=== PATIENT | male | born 1970 | race Caucasian/White ===

== ENCOUNTER → 2024-02-08 | Outpatient (CLI) | payer BC ==
[2024-02-08 15:31] VITALS: BP 159/83; PULSE 67; RESP 16; TEMP 98.3
--- NOTE | 2024-02-08 15:53 | P.SLEEP ---
History of Present Illness DATE: 02/08/2024 CONSULTATION/NEW PATIENT EVALUATION HISTORY OF PRESENT ILLNESS/SLEEP-WAKE EVALUATION: 53-year-old gentleman had be en evaluated in the sleep center for possible obstructive sleep apnea hypopnea syndrome. SLEEP SCHEDULE: Usually sleep schedule from 11 PM to 6 AM on weekdays and from 11 PM to 7 AM on weekend. FALLING ASLEEP: Patient does have difficulties with falling asleep, although no TV in bedroom. DURING SLEEP: Patient sleeps on the side position with loud snoring, witnessed episodes of stop breathing during the sleep by his , awakenings with episodes of palpitations. Patient wakes up from sleep up to 4 times with 2 episodes of nocturia. No history of hypnogogical hallucinations, sleep paralysi s, or cataplexy. DURING THE DAY/WAKE STATE: Patient has episodes of anxiety and claustrophobia during the day.. [place] sleepiness scale is 4. Usually patient does not take naps. PAST MEDICAL HISTORY: Episode of atrial fibrillation, hypertension, hyperlipidemia, anxiety. PAST SURGICAL HISTORY: Tonsillectomy. MEDICATIONS: Please see below. SOCIAL HISTORY: Please see below. FAMILY HISTORY: Hypertension, heart problems. REVIEW OF SYSTEMS: Snoring, multiple awakenings from sleep. No fevers. No double vision. No recent chest pain. No shortness of breath. No abdominal pain. No bleeding episodes. No blood in urine. No seizure episodes. PHYSICAL EXAMINATION: GENERAL: A pleasant patient without any distress. VITAL SIGNS: Please see below, weight 214 pounds, BMI 28.2. HEENT: PERRLA, EOMI. Evaluation of oropharynx showed tongue protrudes midline, low position of soft palate Mallampati 4. NECK: Supple. No JVD. Thyroid is not palpable. 17-1/4 inches in circumference. LUNGS: Clear to percussion and to auscultation. Good air exchange. No wheezing or rhonchi. HEART: S1, S2 regular. No murmurs, gallops or rubs. ABDOMEN: Soft and nontender. Bowel sounds are present. No organomegaly appreciated. EXTREMITIES: No clubbing or cyanosis. BOARD WRITER: Awake, alert, and oriented x3. Cranial nerves 2 to 7 intact. There is no fasciculation or atrophy noted. No focal deficits observed. ASSESSMENT: 1. Loud snoring, witnessed episodes of stop breathing during the sleep, extremely low position of soft palate Mallampati 4, wide neck 17-1/4 inches in circumference. Obstructive sleep apnea hypopnea syndrome. 2. History of episode of atrial fibrillation. 3. Hypertension. 4. Hyperlipidemia. 5 history of anxiety. 6 . Status post tonsillectomy. 7. Insomnia with difficulties to initiate sleep, psychophysiological and possibly secondary to anxiety. PLAN: 1. Polysomnography for evaluation of patient's breathing during sleep. 2. Following plan after reading sleep study. 3. Preferable position during sleep on the side. 4. No driving if patient feels any sleepiness. Patient is aware of civil and criminal liability for unsafe driving. 5. Sleep hygiene with regular sleep time for at least 7.5-8 hours. 6. Watching weight. Thank you very much for referring this patient for consultation. Sincerely, Rui Cabrera MD, PhD, FAASM. Diplomat of [place] [employer], Sleep Medicine Board by [place] [employer] [place] [employer] Intensive Care Nurse of [facility] [place] cc: Rj Hudson MD, Jose Ruiz MD Past Medical History Past Medical History: Atrial Fibrillation History of Any Multi-Drug Resistant Organisms: None Reported Past Surgical History: Tonsillectomy Past Anesthesia/Blood Transfusion Reactions: No Reported Reaction Past Psychological History: No Psychological Hx Reported Smoking Status: Light tobacco smoker Past Alcohol Use History: None Reported Past Drug Use History: None Reported Medications and Allergies Home Medications Medication Instructions Recorded Confirmed Type ALPRAZolam [Xanax] 0.5 mg PO DAILY PRN 02/08/24 02/08/24 History Aspirin [Adult Low Dose Aspirin EC] 81 mg PO DAILY 02/08/24 02/08/24 History Atorvastatin [Lipitor] 20 mg PO DAILY 02/08/24 02/08/24 History PARoxetine [Paxil] 20 mg PO DAILY 02/08/24 02/08/24 History lisinopriL [Zestril] 2.5 mg PO DAILY 02/08/24 02/08/24 History Physical Exam Vitals: Vital Signs Temp Pulse Resp BP Pulse Ox 02/08/24 15:31 98.3 F 67 16 159/83 100 Intake and Output 02/08/24 02/08/24 02/08/24 06:59 14:59 22:59 Other: Weight 97.069 kg Sleep Note - Sleep Data ESS Total: 4 - Sleep Note Sleep Note: Temperature: 98.3 F Pulse Rate: 67 Respiratory Rate: 16 Blood Pressure: 159/83 SpO2: 100 Height: 6 ft 1 in Weight: 97.069 kg BMI: Neck Circumference: 17.2
== END ==
LOC: 3 N SLEEP 15:05
PROVIDERS: ATTEND Internal Medicine
DX: G47.33 Obstructive sleep apnea (adult) (pediatric) (principal); I10 Essential (primary) hypertension; E78.5 Hyperlipidemia, unspecified; F51.04 Psychophysiologic insomnia; F17.200 Nicotine dependence, unspecified, uncomplicated; Z98.890 Other specified postprocedural states; Z90.89 Acquired absence of other organs; Z86.79 Personal history of other diseases of the circulatory system; Z79.899 Other long term (current) drug therapy
CPT/HCPCS: 99211

== ENCOUNTER 2024-03-11 19:23 | Observation (INO) | payer BC ==
--- NOTE | 2024-03-11 19:45 | ED ---
General Adult HPI - General Chief complaint: Syncope Stated complaint: Syncope Time Seen by Provider: 03/11/24 19:40 Source: patient, family, EMS, RN notes reviewed Mode of arrival: EMS - History of Present Illness Initial comments: 53-year-old male with a past medical history of hypertension, cholesterol, and anxiety, presents emergency department via EMS for chief complaint of syncopal event. Patient was at his stepdaughter's house this afternoon when he went into the kitchen and had a syncopal event where he hit his head. at bedside states that the patient was nonresponsive for a few minutes and was seen 'foaming at the mouth' and hands contracted by his chest, and after the patient was arousable he was confused and answering questions inappropriately prompting his to call EMS. Currently, patient is denying symptoms of headache, shortness of breath, difficulty breathing, chest pain, chest pressure, heart palpitations, abdominal pain. Patient states that he is feeling mildly nauseous. Patient has a history of syncopal events over the past few years and had a full neurological workup with EEG and no acute findings. denies history of seizures. - Related Data Home Medications Medication Instructions Recorded Confirmed ALPRAZolam [Xanax] 0.5 mg PO DAILY PRN 02/08/24 02/08/24 Aspirin [Adult Low Dose Aspirin EC] 81 mg PO DAILY 02/08/24 02/08/24 Atorvastatin [Lipitor] 20 mg PO DAILY 02/08/24 02/08/24 PARoxetine [Paxil] 20 mg PO DAILY 02/08/24 02/08/24 lisinopriL [Zestril] 2.5 mg PO DAILY 02/08/24 02/08/24 Allergies Allergy/AdvReac Type Severity Reaction Status Date / Time No Known Allergies Allergy Verified 03/11/24 19:30 Review of Systems ROS Statement: Those systems with pertinent positive or pertinent negative responses have been documented in the HPI. ROS Other: All systems not noted in ROS Statement are negative. Past Medical History Past Medical History: Atrial Fibrillation History of Any Multi-Drug Resistant Organisms: None Reported Past Surgical History: Tonsillectomy Past Anesthesia/Blood Transfusion Reactions: No Reported Reaction Past Psychological History: No Psychological Hx Reported Smoking Status: Light tobacco smoker Past Alcohol Use History: None Reported Past Drug Use History: None Reported General Exam General appearance: alert, in no apparent distress Head exam: Present: atraumatic, normocephalic, normal inspection Eye exam: Present: normal appearance, PERRL, EOMI. Absent: scleral icterus, conjunctival injection, periorbital swelling ENT exam: Present: normal exam, mucous membranes moist Neck exam: Present: normal inspection. Absent: tenderness, meningismus, lymphadenopathy Respiratory exam: Present: normal lung sounds bilaterally. Absent: respiratory distress, wheezes, rales, rhonchi, stridor Cardiovascular Exam: Present: regular rate, normal rhythm, normal heart sounds. Absent: systolic murmur, diastolic murmur, rubs, gallop, clicks GI/Abdominal exam: Present: soft, normal bowel sounds. Absent: distended, tend erness, guarding, rebound, rigid Extremities exam: Present: normal inspection, full ROM, normal capillary refill. Absent: tenderness, pedal edema, joint swelling, calf tenderness Back exam: Present: normal inspection Neurological exam: Present: alert, oriented X3, CN II-XII intact Skin exam: Present: warm, dry, intact, normal color. Absent: rash Course Vital Signs 03/11/24 03/11/24 03/11/24 19:28 20:50 21:42 Temperature 97.8 F Pulse Rate 71 73 75 Respiratory 18 18 18 Rate Blood Pressure 162/86 157/79 141/75 O2 Sat by Pulse 100 100 99 Oximetry Medical Decision Making - Medical Decision Making Was pt. sent in by a medical professional or institution ([facility]INA Smith, [employer], urgent care, hospital, or [place] health care facility...) When possible be specific @ -No Did you speak to anyone other than the patient for history (EMS, parent, family, police, friend...)? What history was obtained from this source @ -Spoke to the patient's at bedside states the patient was "unresponsive "for approximately 6 to 8 minutes after the syncopal event, see HPI for further details. Did you review nursing and triage notes (agree or disagree)? Why? @ -I reviewed and agree with nursing and triage notes Were old charts reviewed (outside hosp., previous admission, EMS record, old EKG, old radiological studies, urgent care reports/EKG's, [place] health care facility records)? Report findings @ -No old charts were reviewed Differential Diagnosis (chest pain, altered mental status, abdominal pain women, abdominal pain men, vaginal bleeding, weakness, fever, dyspnea, syncope, headache, dizziness, GI bleed, back pain, seizure, CVA, palpatations, mental health, musculoskeletal)? @ -Differential Syncope: Valvular disease, hypertrophic cardiomyopathy, pulmonary embolism, tamponade, tachycardia, bradycardia, [place], hypovolemia, hemorrhage, dissection, anemia, intracranial hemorrhage, seizure, hypoglycemia, carbon monoxide poisoning, this is not meant to be an all-inclusive list. EKG interpreted by me (3pts min.). @ -completed at 1955, sinus rhythm, ventricular rate 69, parable 146, QTc 420. No acute signs of ischemia. X-rays interpreted by me (1pt min.). @ -chest X-ray no acute cardiopulmonary process or disease. CT interpreted by me (1pt min.). @ -CT of the brain without contrast reveals no acute intracranial process CT of the chest suboptimal study without evidence for acute pulmonary embolism, no suspicious acute pulmonary process. U/S interpreted by me (1pt. min.). @ -None done What testing was considered but not performed or refused? (CT, X-rays, U/S, labs)? Why? @ -None What meds were considered but not given or refused? Why? @ -None Did you discuss the management of the patient with other professionals (professionals i.e. , PA, CARPENTER ASSEMBLER, lab, RT, psych nurse, web content & social media manager, housekeeper child care, teacher, plain clothes police officer, high risk case manager)? Give summary @ -I spoke with internal medicine physician, Dr. Perez, with [facility] hospitalists in regard to the patient's presentation and admission for syncope workup and cardiology and neurology on consult, patient is excepted. Was smoking cessation discussed for >3mins.? @ -No Was critical care preformed (if so, how long)? @ -No Were there social determinants of health that impacted care today? How? (Homelessness, low income, unemployed, alcoholism, drug addiction, transportation, low edu. Level, literacy, decrease access to med. care, prison, rehab)? @ -No Was there de-escalation of care discussed even if they declined (Discuss DNR or withdrawal of care, Hospice)? DNR status @ -No What co-morbidities impacted this encounter? (DM, HTN, Smoking, COPD, CAD, Cancer, CVA, ARF, Chemo, Hep., AIDS, mental health diagnosis, sleep apnea, morbid obesity)? @ -None Was patient admitted / discharged? Hospital course, mention meds given and route, prescriptions, significant lab abnormalities, going to OR and other pertinent info. @ -admitted. 53-year-old male with syncopal event. On my evaluation patient is resting comfortably in no acute distress, vitals are stable and EKG showing si nus rhythm. Examination there are no acute findings. Patient is saying that he feels mildly nauseated. CBC, CMP within normal limits, troponin nonelevated less than 0.012. CT of the brain and chest x-ray no acute process. Coagulation profile reason mildly elevated DM biomarker level of 0.73, with there being no definitive diagnosis as to why patient had a syncopal event this evening in addition to mildly elevated D-dimer he is sent for a CTA of the chest to rule out potential pulmonary embolism that is a negative study. Patient will be admitted to internal medicine with neurology and cardiology on consult for syncopal event and to rule out potential seizure. Case discussed with Dr. Ramy hyatt Undiagnosed new problem with uncertain prognosis? @ -No Drug Therapy requiring intensive monitoring for toxicity (Heparin, Nitro, Insulin, Cardizem)? @ -No Were any procedures done? @ -No Diagnosis/symptom? @ -syncope Acute, or Chronic, or Acute on Chronic? @ -acute Uncomplicated (without systemic symptoms) or Complicated (systemic symptoms)? @ -complicated Side effects of treatment? @ -No Exacerbation, Progression, or Severe Exacerbation? @ -No Poses a threat to life or bodily function? How? (Chest pain, [place], [place], pneumonia, PE, COPD, DKA, ARF, appy, cholecystitis, CVA, Diverticulitis, Homicidal, Suicidal, threat to staff... and all critical care pts) @ -Cause of syncope can lead to multiorgan system dysfunction and potential . - Lab Data Result diagrams: 03/11/24 19:49 03/11/24 19:49 Lab Results 03/11/24 03/11/24 03/11/24 Range/Units 19:49 19:49 19:49 WBC 8.9 (3.8-10.6) k/uL RBC 4.66 (4.30-5.90) m/uL Hgb 14.2 (13.0-17.5) gm/dL Hct 42.5 (39.0-53.0) % MCV 91.3 (80.0-100.0) fL MCH 30.6 (25.0-35.0) pg MCHC 33.5 (31.0-37.0) g/dL RDW 13.2 (11.5-15.5) % Plt Count 171 (150-450) k/uL MPV 10.0 Neutrophils % 79 % Lymphocytes % 13 % Monocytes % 5 % Eosinophils % 2 % Basophils % 0 % Neutrophils # 7.0 (1.3-7.7) k/uL Lymphocytes # 1.1 (1.0-4.8) k/uL Monocytes # 0.4 (0-1.0) k/uL Eosinophils # 0.2 (0-0.7) k/uL Basophils # 0.0 (0-0.2) k/uL PT 11.7 (10.0-12.5) sec INR 1.1 (<1.2) APTT 23.3 (22.0-30.0) sec D-Dimer 0.73 H (<0.60) mg/L FEU Sodium 135 L (137-145) mmol/L Potassium 3.3 L (3.5-5.1) mmol/L Chloride 102 (98-107) mmol/L Carbon Dioxide 23 (22-30) mmol/L Anion Gap 10 mmol/L BUN 14 (9-20) mg/dL Creatinine 0.81 (0.66-1.25) mg/dL Est GFR (CKD-EPI)AfAm >90 (>60 ml/min/1.73 sqM) Est GFR (CKD-EPI)NonAf >90 (>60 ml/min/1.73 sqM) Glucose 120 H (74-99) mg/dL POC Glucose (mg/dL) (70-110) mg/dL POC Glu Personnel And Payroll Technician ID Calcium 8.7 (8.4-10.2) mg/dL Magnesium 1.7 (1.6-2.3) mg/dL Total Bilirubin 1.2 (0.2-1.3) mg/dL AST 26 (17-59) U/L ALT 33 (4-49) U/L Alkaline Phosphatase 90 (38-126) U/L Troponin I (0.000-0.034) ng/mL Total Protein 6.7 (6.3-8.2) g/dL Albumin 4.1 (3.5-5.0) g/dL Urine Color Urine Appearance (Clear) Urine pH (5.0-8.0) Ur Specific [place] (1.001-1.035) Urine Protein (Negative) Urine Glucose (UA) (Negative) Urine Ketones (Negative) Urine Blood (Negative) Urine Nitrite (Negative) Urine Bilirubin (Negative) Urine Urobilinogen (<2.0) mg/dL Ur Leukocyte Esterase (Negative) 03/11/24 03/11/24 03/11/24 Range/Units 19:49 20:03 20:06 WBC (3.8-10.6) k/uL RBC (4.30-5.90) m/uL Hgb (13.0-17.5) gm/dL Hct (39.0-53.0) % MCV (80.0-100.0) fL MCH (25.0-35.0) pg MCHC (31.0-37.0) g/dL RDW (11.5-15.5) % Plt Count (150-450) k/uL MPV Neutrophils % % Lymphocytes % % Monocytes % % Eosinophils % % Basophils % % Neutrophils # (1.3-7.7) k/uL Lymphocytes # (1.0-4.8) k/uL Monocytes # (0-1.0) k/uL Eosinophils # (0-0.7) k/uL Basophils # (0-0.2) k/uL PT (10.0-12.5) sec INR (<1.2) APTT (22.0-30.0) sec D-Dimer (<0.60) mg/L FEU Sodium (137-145) mmol/L Potassium (3.5-5.1) mmol/L Chloride (98-107) mmol/L Carbon Dioxide (22-30) mmol/L Anion Gap mmol/L BUN (9-20) mg/dL Creatinine (0.66-1.25) mg/dL Est GFR (CKD-EPI)AfAm (>60 ml/min/1.73 sqM) Est GFR (CKD-EPI)NonAf (>60 ml/min/1.73 sqM) Glucose (74-99) mg/dL POC Glucose (mg/dL) 106 (70-110) mg/dL POC Glu Personnel And Payroll Technician ID Lynda Mayen Calcium (8.4-10.2) mg/dL Magnesium (1.6-2.3) mg/dL Total Bilirubin (0.2-1.3) mg/dL AST (17-59) U/L ALT (4-49) U/L Alkaline Phosphatase (38-126) U/L Troponin I <0.012 (0.000-0.034) ng/mL Total Protein (6.3-8.2) g/dL Albumin (3.5-5.0) g/dL Urine Color Light Yellow Urine Appearance Clear (Clear) Urine pH 6.5 (5.0-8.0) Ur Specific [place] 1.019 (1.001-1.035) Urine Protein Negative (Negative) Urine Glucose (UA) Negative (Negative) Urine Ketones 1+ H (Negative) Urine Blood Negative (Negative) Urine Nitrite Negative (Negative) Urine Bilirubin Negative (Negative) Urine Urobilinogen <2.0 (<2.0) mg/dL Ur Leukocyte Esterase Negative (Negative) Disposition Clinical Impression: Syncope Disposition: [facility] Condition: Good Is patient prescribed a controlled substance at d/c from ED?: No Decision to Admit Reason: Admit from EC Decision Date: 03/11/24 Decision Time: 22:03
[2024-03-11 20:02] LABS: Basophils % (A) 0 %; Eosinophils # (A) 0.2 k/uL (0-0.7); Eosinophils % (A) 2 %; HCT 42.5 % (39.0-53.0); HGB 14.2 gm/dL (13.0-17.5); Lymphocytes # (A) 1.1 k/uL (1.0-4.8); Lymphocytes % (A) 13 %; MCH 30.6 pg (25.0-35.0); MCHC 33.5 g/dL (31.0-37.0); MCV 91.3 fL (80.0-100.0); Monocytes # (A) 0.4 k/uL (0-1.0); Monocytes % (A) 5 %; Neutrophils % (A) 79 %; Platelet Count 171 k/uL (150-450); RBC 4.66 m/uL (4.30-5.90); RDW 13.2 % (11.5-15.5); WBC 8.9 k/uL (3.8-10.6)
[2024-03-11 20:04] LABS: Glucose,Whole Blood 106 mg/dL (70-110)
[2024-03-11] MEDS: SODIUM CHLORIDE 0.9% 1,000 ML IV STA (20:04)
[2024-03-11 20:12] LABS: ALT 33 U/L (4-49); AST 26 U/L (17-59); African American GFR (CKD) >90 (>60 ml/min/1.73 sqM); Albumin 4.1 g/dL (3.5-5.0); Alkaline Phosphatase 90 U/L (38-126); Anion Gap 10 mmol/L; Blood Urea Nitrogen 14 mg/dL (9-20); Calcium 8.7 mg/dL (8.4-10.2); Carbon Dioxide 23 mmol/L (22-30); Chloride 102 mmol/L (98-107); Glucose 120 mg/dL (74-99); Magnesium 1.7 mg/dL (1.6-2.3); Non-African American GFR(CKD) >90 (>60 ml/min/1.73 sqM); Potassium 3.3 mmol/L (3.5-5.1); Sodium 135 mmol/L (137-145); Total Bilirubin 1.2 mg/dL (0.2-1.3); Total Protein 6.7 g/dL (6.3-8.2)
[2024-03-11 20:23] LABS: INR 1.1 (<1.2); Partial Thromboplastin Time 23.3 sec (22.0-30.0); Prothrombin Time 11.7 sec (10.0-12.5)
[2024-03-11] MEDS: levETIRAcetam IV 500 MG/5 ML VIAL IVP STA (20:46)
--- NOTE | 2024-03-11 21:11 | XR ---
EXAMINATION TYPE: XR chest 2V DATE OF EXAM: 03/11/2024 COMPARISON: None INDICATION: Syncope TECHNIQUE: Frontal and lateral views of the chest are obtained. FINDINGS: The heart size is normal. The pulmonary vasculature is normal. The lungs are clear. IMPRESSION: 1. No acute pulmonary process.
--- NOTE | 2024-03-11 21:11 | CT ---
EXAMINATION TYPE: CT brain wo con DATE OF EXAM: 03/11/2024 COMPARISON: None INDICATION: Pt presents to ED due to syncope DLP: 1205.2 mGycm, Automated exposure control for dose reduction was used. CONTRAST: None CT of the brain is performed utilizing 3 mm thick sections through the posterior fossa and 3 mm thick sections through the remaining calvarium. Study is performed within 24 hours of arrival to the hosp ital. No abnormal hyperdensity is present to suggest an acute intracranial hemorrhage. No mass lesion is evident. No acute infarcts are evident. Ventricles and sulci are appropriate for the patient age. Paranasal sinuses and mastoid air cells within the [id number] are clear. IMPRESSION: 1. No acute intracranial process. Follow up MRI can be performed as clinically indicated.
[2024-03-11 21:16] LABS: Appearance,Urine Clear (Clear); Bilirubin,Urine Negative (Negative); Blood,Urine Negative (Negative); Color,Urine Light Yellow; Glucose,Urine (UA) Negative (Negative); Ketones,Urine 1+ (Negative); Leukocyte Esterase,Urine Negative (Negative); Nitrite,Urine Negative (Negative); PH, Urine 6.5 (5.0-8.0); Protein,Urine Negative (Negative); Specific Gravity,Urine 1.019 (1.001-1.035); Urobilinogen,Urine <2.0 mg/dL (<2.0)
[2024-03-11] MEDS: POTASSIUM CHLORIDE ER 20 MEQ TAB.ER PO STA (21:33)
[2024-03-11] MEDS ORDERED: ACETAMINOPHEN TAB 325 MG TAB PO PRN (22:04)
[2024-03-11] MEDS ORDERED: IBUPROFEN 400 MG TAB PO PRN (22:04)
[2024-03-11] MEDS ORDERED: NALOXONE 0.4 MG/ML 1 ML VIAL IV PRN (22:04)
[2024-03-11] MEDS ORDERED: ONDANSETRON 4 MG/2 ML VIAL IVP PRN (22:04)
--- NOTE | 2024-03-11 22:39 | CT ---
EXAMINATION TYPE: CT chest angio for PE DATE OF EXAM: 03/11/2024 COMPARISON: Chest x-ray earlier today HISTORY: Pt presents to ED due to syncope CT DLP: 997.7 mGycm. Automated Exposure Control for Dose Reduction was Utilized. CONTRAST: CTA scan of the thorax is performed with IV Contrast, patient injected with 169 mL of Isovue 370, pul monary embolism protocol. MIP Images are created on CT scanner and reviewed. FINDINGS: LUNGS: The lungs are grossly clear, there is no concerning parenchymal mass or focal consolidation. There is no pleural effusion or pneumothorax seen. The tracheobronchial tree is patent. MEDIASTINUM: Suboptimal study with most dense contrast in the SVC. There is however no convincing CT evidence for acute pulmonary embolism. Enhancement aorta without aneurysm or dissection. No cardiom egaly or pericardial effusion is seen. OTHER: Small bilateral subareolar gynecomastia. Multilevel spurring in the thoracic spine. IMPRESSION: 1. Suboptimal study without CT evidence for acute pulmonary embolism. No suspicious acute pulmonary p rocess.
[2024-03-12 08:05] LABS: Basophils % (A) 0 %; Eosinophils % (A) 0 %; HCT 42.9 % (39.0-53.0); HGB 14.3 gm/dL (13.0-17.5); Lymphocytes # (A) 1.3 k/uL (1.0-4.8); Lymphocytes % (A) 14 %; MCH 30.5 pg (25.0-35.0); MCHC 33.3 g/dL (31.0-37.0); MCV 91.8 fL (80.0-100.0); Mean Platelet Volume 10.6; Monocytes # (A) 0.6 k/uL (0-1.0); Monocytes % (A) 6 %; Neutrophils # (A) 7.3 k/uL (1.3-7.7); Neutrophils % (A) 78 %; Platelet Count 183 k/uL (150-450); RBC 4.68 m/uL (4.30-5.90); RDW 13.4 % (11.5-15.5); WBC 9.4 k/uL (3.8-10.6)
[2024-03-12 08:18] LABS: ALT 30 U/L (4-49); AST 24 U/L (17-59); African American GFR (CKD) >90 (>60 ml/min/1.73 sqM); Albumin 3.8 g/dL (3.5-5.0); Alkaline Phosphatase 75 U/L (38-126); Anion Gap 4 mmol/L; Blood Urea Nitrogen 9 mg/dL (9-20); Calcium 9.1 mg/dL (8.4-10.2); Carbon Dioxide 29 mmol/L (22-30); Chloride 108 mmol/L (98-107); Glucose 87 mg/dL (74-99); Non-African American GFR(CKD) >90 (>60 ml/min/1.73 sqM); Potassium 4.2 mmol/L (3.5-5.1); Sodium 141 mmol/L (137-145); Total Bilirubin 1.4 mg/dL (0.2-1.3); Total Protein 6.3 g/dL (6.3-8.2)
--- NOTE | 2024-03-12 09:00 | P.HPIM ---
History of Present Illness This is a pleasant 53 years old male with past medical history of atrial fibrillation on aspirin and statin only. Presents because of syncope. This is not the first time he had several episodes in the long past. This time he was on the floor for 10 to 12 minutes as per family at bedside, no documented seizure-like activity, no urine or bowel incontinence no tongue biting. No chest pain or dizziness prior or during the episode. Patient was confused for about an hour after he syncopized. Currently fully awake and oriented to time place person, denies chest pain or dyspnea. No GI/ signs or symptoms. No fever or chills. No headache dizziness weakness or numbness. He denies smoking alcohol or illicit drugs. His PCP is Dr. Akers Hemodynamically he is stable. He has unremarkable CBC, BMP and liver enzymes D-dimer was mildly elevated 0.73 CTA of the chest was negative for PE. No acute process. EKG sinus rhythm at [address]-T changes X-ray is negative CT of the brain is negative for acute process Review of Systems Review of systems CONSTITUTIONAL: No fever, no malaise, no fatigue. HEENT: No recent visual problems or hearing problems. Denied any sore throat. CARDIOVASCULAR: No orthopnea, PND, no palpitations, no syncope. PULMONARY: No shortness of breath, no cough, no hemoptysis. GASTROINTESTINAL: No diarrhea, no nausea, no vomiting, no abdominal pain. Normoa ctive bowel sounds. NEUROLOGICAL: No headaches, no weakness, no numbness. HEMATOLOGICAL: Denies any bleeding or petechiae. GENITOURINARY: Denies any burning micturition, frequency, or urgency. MUSCULOSKELETAL/RHEUMATOLOGICAL: Denies any joint pain, swelling, or any muscle pain. ENDOCRINE: Denies any polyuria or polydipsia. Past Medical History Past Medical History: Atrial Fibrillation History of Any Multi-Drug Resistant Organisms: None Reported Past Surgical History: Tonsillectomy Past Anesthesia/Blood Transfusion Reactions: No Reported Reaction Past Psychological History: No Psychological Hx Reported Smoking Status: Light tobacco smoker Past Alcohol Use History: None Reported Past Drug Use History: None Reported Medications and Allergies Home Medications Medication Instructions Recorded Confirmed Type ALPRAZolam [Xanax] 0.5 mg PO DAILY PRN 02/08/24 02/08/24 History Aspirin [Adult Low Dose Aspirin EC] 81 mg PO DAILY 02/08/24 02/08/24 History Atorvastatin [Lipitor] 20 mg PO DAILY 02/08/24 02/08/24 History PARoxetine [Paxil] 20 mg PO DAILY 02/08/24 02/08/24 History lisinopriL [Zestril] 2.5 mg PO DAILY 02/08/24 02/08/24 History Allergies Allergy/AdvReac Type Severity Reaction Status Date / Time No Known Allergies Allergy Verified 03/11/24 19:30 Physical Exam Vitals: Vital Signs Temp Pulse Resp BP Pulse Ox 03/12/24 02:44 69 16 130/66 98 03/11/24 21:42 75 18 141/75 99 03/11/24 20:50 73 18 157/79 100 03/11/24 19:28 97.8 F 71 18 162/86 100 Intake and Output 03/11/24 03/12/24 03/12/24 22:59 06:59 14:59 Other: Weight 92.986 kg GENERAL: The patient is alert and oriented x3, not in any acute distress. Well developed, well nourished. HEENT: Pupils are round and equally reacting to light. EOMI. No scleral icterus. No conjunctival pallor. Normocephalic, atraumatic. No pharyngeal erythema. No thyromegaly. CARDIOVASCULAR: S1 and S2 present. No murmurs, rubs, or gallops. PULMONARY: Chest is clear to auscultation, no wheezing , no crackles. ABDOMEN: Soft, nontender, nondistended, normoactive bowel sounds. No palpable organomegaly. MUSCULOSKELETAL: No joint swelling or deformity. EXTREMITIES: No cyanosis, clubbing, or pedal edema. NEUROLOGICAL: Gross neurological examination did not reveal any focal deficits. SKIN: No rashes. no petechiae. Results CBC & Chem 7: 03/12/24 07:28 03/12/24 07:28 Labs: Abnormal Lab Results - Last 24 Hours (Table) 03/11/24 03/11/24 03/11/24 Range/Units 19:49 19:49 20:06 D-Dimer 0.73 H (<0.60) mg/L FEU Sodium 135 L (137-145) mmol/L Potassium 3.3 L (3.5-5.1) mmol/L Chloride (98-107) mmol/L Glucose 120 H (74-99) mg/dL Total Bilirubin (0.2-1.3) mg/dL Urine Ketones 1+ H (Negative) 03/12/24 Range/Units 07:28 D-Dimer (<0.60) mg/L FEU Sodium (137-145) mmol/L Potassium (3.5-5.1) mmol/L Chloride 108 H (98-107) mmol/L Glucose (74-99) mg/dL Total Bilirubin 1.4 H (0.2-1.3) mg/dL Urine Ketones (Negative) Assessment and Plan Assessment: Syncope of unknown cause, rule out cardiac versus neurological causes History of A-fib on aspirin at home only Plan: Resume aspirin Cardiology and neurology evaluation Check orthostatic vitals Echocardiogram Labs and medication were reviewed.. Continue same treatment. Continue with symptomatic treatment. Resume home medication. Monitor labs and vitals. DVT and GI prophylaxis. Further recommendations as per clinical course of the patient DVT prophylaxis: Subcutaneous heparin GI Prophylaxis: Pepcid PT/OT: Pending Prognosis is guarded
[2024-03-12] MEDS: ATORVASTATIN 20 MG TAB PO SCH (09:23)
[2024-03-12] MEDS: ASPIRIN 81 MG PO SCH (09:23)
--- NOTE | 2024-03-12 12:01 | P.CRDCN ---
History of Present Illness History of present illness: HISTORY OF PRESENT ILLNESS: This is a 53-year-old male with a past medical history significant for hypertension, hyperlipidemia, and anxiety. Patient follows in the office with Dr. Ruiz. We have been asked to see the patient in consultation for syncope. Patient examined at the bedside in the emergency room. Patient states he was sitting on his deck yesterday having a barbecue for the holiday. He states that he began to feel nauseous so he thought he needed something to eat. He states that he stood up and took a few steps to go into the kitchen when he suddenly passed out. Patient spouse at the bedside who states he was out for approximately 10 to 12 minutes total. Afterwards the patient was confused for approximately 1 hour after the incident. He did not remember any of the events that had just happened. The patient's states that the patient's legs and arms were also very rigid at that time. She states that he was foaming at the mouth. She states that the patient did have an episode of syncope about 3 years ago however he did not have any confusion or foaming of the mouth at that time. The patient denies having any chest pain or pressure. He denies any shortness of breath. Denies any dizziness or lightheadedness. DIAGNOSTICS: - EKG reveals sinus mechanism with no signs of acute ischemia. - Chest xray negative for acute process - Laboratory data: WBC 9.4. Hemoglobin 14.3. Platelet count 183. D-dimer 0.73. Sodium 141. Potassium 4.2. BUN 9. Creatinine 0.82. Troponin negative x 3 - Current home cardiac medications include lisinopril 2.5 mg daily, aspirin 81 mg daily, Lipitor 20 mg daily - Patient underwent stress echocardiogram in December 2023 with no signs of acute ischemia REVIEW OF SYSTEMS: At the time of my exam: CONSTITUTIONAL: Denies fever or chills. HEENT: Denies blurred vision, vision changes, or eye pain. Denies hemoptysis CARDIOVASCULAR: Denies chest pain. Denies orthopnea. Denies PND. Denies palpitations RESPIRATORY: Denies shortness of breath. GASTROINTESTINAL: Denies abdominal pain. Denies nausea or vomiting. HEMATOLOGIC: Denies bleeding disorders. GENITOURINARY: Denies any blood in urine. SKIN: Denies pruitis. Denies rash. PHYSICAL EXAM: VITAL SIGNS: Reviewed. GENERAL: Well-developed in no acute distress. HEENT: Head is normocephalic. Pupils are equal, round. Sclerae anicteric. Mucous membranes of the mouth are moist. Neck supple. No JVD or thyromegaly LUNGS: Respirations even and unlabored. Lungs essentially clear to auscultation bilaterally. HEART: Regular rate and rhythm. S1 and S2 heard. ABDOMEN: Soft. Nondistended. Nontender. EXTREMITIES: Normal range of motion. No clubbing or cyanosis. Peripheral pulses intact. No lower extremity edema NEUROLOGIC: Awake and alert. Oriented x 3. ASSESSMENT: Syncope, suspect seizure Hypertension Hyperlipidemia Anxiety PLAN: Patient's episode appears to be related to new onset seizure. Does not appear to be cardiac in etiology. Await neurology evaluation. Obtain 2D echo to assess cardiac structure and function Resume home cardiac medications Further recommendations pending patient course Nurse practitioner note has been reviewed by physician. Signing provider agrees with the documented findings, assessment, and plan of care documented by HISTORIC PRESERVATIONIST as a scribe. Past Medical History Past Medical History: Atrial Fibrillation History of Any Multi-Drug Resistant Organisms: None Reported Past Surgical History: Tonsillectomy Past Anesthesia/Blood Transfusion Reactions: No Reported Reaction Past Psychological History: No Psychological Hx Reported Smoking Status: Light tobacco smoker Past Alcohol Use History: None Reported Past Drug Use History: None Reported Medications and Allergies Home Medications Medication Instructions Recorded Confirmed Type ALPRAZolam [Xanax] 0.5 mg PO DAILY PRN 02/08/24 03/12/24 History Aspirin [Adult Low Dose Aspirin EC] 81 mg PO DAILY 02/08/24 03/12/24 History Atorvastatin [Lipitor] 20 mg PO DAILY 02/08/24 03/12/24 History PARoxetine [Paxil] 20 mg PO DAILY 02/08/24 03/12/24 History lisinopriL [Zestril] 2.5 mg PO DAILY 02/08/24 03/12/24 History Allergies Allergy/AdvReac Type Severity Reaction Status Date / Time No Known Allergies Allergy Verified 03/11/24 19:30 Physical Exam Vitals: Vital Signs Temp Pulse Resp BP Pulse Ox 03/12/24 02:44 69 16 130/66 98 03/11/24 21:42 75 18 141/75 99 03/11/24 20:50 73 18 157/79 100 03/11/24 19:28 97.8 F 71 18 162/86 100 Intake and Output 03/11/24 03/12/24 03/12/24 22:59 06:59 14:59 Other: Weight 92.986 kg Results 03/12/24 07:28 03/12/24 07:28 Cardiac Enzymes 03/11/24 03/11/24 03/12/24 Range/Units 19:49 19:49 07:28 AST 26 24 (17-59) U/L Troponin I <0.012 (0.000-0.034) ng/mL Coagulation 03/11/24 Range/Units 19:49 PT 11.7 (10.0-12.5) sec APTT 23.3 (22.0-30.0) sec CBC 03/11/24 03/12/24 Range/Units 19:49 07:28 WBC 8.9 9.4 (3.8-10.6) k/uL RBC 4.66 4.68 (4.30-5.90) m/uL Hgb 14.2 14.3 (13.0-17.5) gm/dL Hct 42.5 42.9 (39.0-53.0) % Plt Count 171 183 (150-450) k/uL Comprehensive Metabolic Panel 03/11/24 03/12/24 Range/Units 19:49 07:28 Sodium 135 L 141 (137-145) mmol/L Potassium 3.3 L 4.2 (3.5-5.1) mmol/L Chloride 102 108 H (98-107) mmol/L Carbon Dioxide 23 29 (22-30) mmol/L BUN 14 9 (9-20) mg/dL Creatinine 0.81 0.82 (0.66-1.25) mg/dL Glucose 120 H 87 (74-99) mg/dL Calcium 8.7 9.1 (8.4-10.2) mg/dL AST 26 24 (17-59) U/L ALT 33 30 (4-49) U/L Alkaline Phosphatase 90 75 (38-126) U/L Total Protein 6.7 6.3 (6.3-8.2) g/dL Albumin 4.1 3.8 (3.5-5.0) g/dL Current Medications Generic Name Dose Route Start Last Admin Trade Name Freq PRN Reason Stop Dose Admin Acetaminophen 650 mg 03/11/24 22:04 Acetaminophen Tab 325 Mg Tab PO Q6HR PRN Mild Pain or Fever > 100.5 Ibuprofen 400 mg 03/11/24 22:04 Ibuprofen 400 Mg Tab PO Q6HR PRN Mild Pain or Fever > 100.5 Naloxone HCl 0.2 mg 03/11/24 22:04 Naloxone 0.4 Mg/Ml 1 Ml Vial IV Q2M PRN Opioid Reversal Ondansetron HCl 4 mg 03/11/24 22:04 Ondansetron 4 Mg/2 Ml Vial IVP Q8HR PRN Nausea And Vomiting Intake and Output 03/11/24 03/12/24 03/12/24 22:59 06:59 14:59 Other: Weight 92.986 kg 03/12/24 07:28 03/12/24 07:28
--- NOTE | 2024-03-12 20:22 | US ---
EXAMINATION TYPE: US carotid duplex BILAT DATE OF EXAM: 03/12/2024 COMPARISON: NONE CLINICAL INDICATION: Male, 53 years old with history of Syncope vs seizure; Patient states that he pa ssed out and took a long time to come to. TECHNIQUE: Carotid duplex ultrasound examination. Indirect Doppler criteria was utilized. FINDINGS: EXAM MEASUREMENTS: RIGHT: Peak Systolic Velocity (PSV) cm/sec ----- Right CCA: 72.4 ----- Right ICA: 98.2 ----- Right ECA: 146.1 ICA/CCA ratio: 1.4 RIGHT: End Diastole cm/sec ----- Right CCA: 15.3 ----- Right ICA: 41.3 ----- Right ECA: 32.3 LEFT: Peak Systolic Velocity (PSV) cm/sec ----- Left CCA: 114.1 ----- Left ICA: 95.6 ----- Left ECA: 155.4 ICA/CCA ratio: 0.8 LEFT: End Diastole cm/sec ----- Left CCA: 35.3 ----- Left ICA: 34.8 ----- Left ECA: 23.0 VERTEBRALS (direction of flow): Right Vertebral: Antegrade Left Vertebral: Antegrade Rhythm: Normal ORACLE CONSULTANT NOTES: Slightly elevated ECA velocities seen bilaterally IMPRESSION: Less than 50% stenosis of the bilateral carotid bifurcations. Criteria for Assigning % of Stenosis / Diameter reduction (Estimation based on the indirect measurements of the internal carotid artery velocities (ICA PSV). 1. Normal (no stenosis)=ICA PSV < 125 cm/s: ratio < 2.0: ICA EDV<40 cm/s. 2. Less than 50% stenosis=ICA PSV < 125 cm/s: ratio < 2.0: ICA EDV<40 cm/s. 3. 50 to 69% stenosis=ICA PSV of 125 to 230 cm/s: ration 2.0 ? 4.0: ICA EDV 40-100 cm/s. 4. Greater than 70% stenosis to near occlusion= ICA PSV > 230 cm/s: ratio > 4.0: ICA EDV > 100 cm/s. 5. Near occlusion= ICA PSV velocities may be low or undetectable: variable ratio and ICA EDV. 6. Total occlusion=unable to detect flow.
[2024-03-13 06:45] LABS: Basophils % (A) 1 %; Eosinophils # (A) 0.2 k/uL (0-0.7); Eosinophils % (A) 2 %; HCT 42.2 % (39.0-53.0); HGB 14.2 gm/dL (13.0-17.5); Lymphocytes # (A) 1.7 k/uL (1.0-4.8); Lymphocytes % (A) 24 %; MCHC 33.6 g/dL (31.0-37.0); MCV 92.2 fL (80.0-100.0); Mean Platelet Volume 10.4; Monocytes # (A) 0.5 k/uL (0-1.0); Monocytes % (A) 7 %; Neutrophils # (A) 4.4 k/uL (1.3-7.7); Neutrophils % (A) 64 %; Platelet Count 160 k/uL (150-450); RBC 4.58 m/uL (4.30-5.90); RDW 13.4 % (11.5-15.5); WBC 6.9 k/uL (3.8-10.6)
[2024-03-13 06:55] LABS: African American GFR (CKD) >90 (>60 ml/min/1.73 sqM); Anion Gap 5 mmol/L; Blood Urea Nitrogen 11 mg/dL (9-20); Carbon Dioxide 30 mmol/L (22-30); Chloride 105 mmol/L (98-107); Glucose 90 mg/dL (74-99); Non-African American GFR(CKD) >90 (>60 ml/min/1.73 sqM); Potassium 3.9 mmol/L (3.5-5.1); Sodium 140 mmol/L (137-145)
--- NOTE | 2024-03-13 10:54 | CA ---
Transthoracic Echo Report Name: Dioni Carty Age: 53 Gender: M : 1970 Exam Date: 03/12/2024 16:10 Exam Location: [facility] Ht (in): 73 Wt (lb): 205 Ordering Physician: Bhargavi Sol Attending/Referring Phys: Data Quality Consultant Jeniffer Henry RDCS Procedure CPT: Indications: Syncope Cardiac Hx: Technical Quality: Fair Contrast 1: Total Dose (mL): Contrast 2: Total Dose (mL): MEASUREMENTS (Male / Female) Normal Values 2D ECHO LV Diastolic Diameter PLAX 6.1 cm 4.2 - 5.9 / 3.9 - 5.3 cm LV Systolic Diameter PLAX 3.6 cm IVS Diastolic Thickness 1.4 cm 0.6 - 1.0 / 0.6 - 0.9 cm LVPW Diastolic Thickness 1.4 cm 0.6 - 1.0 / 0.6 - 0.9 cm LV Relative Wall Thickness 0.5 RV Internal Dim ED PLAX 3.1 cm LA Systolic Diameter LX 4.2 cm 3.0 - 4.0 / 2.7 - 3.8 cm LV Diastolic Volume MOD 4C 168.1 cm??? LV Systolic Volume MOD 4C 74.6 cm??? LV Ejection Fraction MOD 4C 55.6 % LV Cardiac Index MOD 4C 2760.2 cm???/min???m??? LV Diastolic Length 4C 9.6 cm LV Systolic Length 4C 7.4 cm LV Diastolic Volume MOD 2C 168.2 cm??? LV Systolic Volume MOD 2C 82.9 cm??? LV Ejection Fraction MOD 2C 50.7 % LV Cardiac Index MOD 2C 2518.7 cm???/min???m??? LV Diastolic Length 2C 9.4 cm LV Systolic Length 2C 7.7 cm LA Volume 75.1 cm??? 18 - 58 / 22 - 52 cm??? LA Volume Index 34.1 cm???/m??? 16 - 28 cm???/m??? M-MODE Aortic Root Diameter MM 4.1 cm AV Cusp Separation MM 2.5 cm DOPPLER AV Peak Velocity 161.2 cm/s AV Peak Gradient 10.4 mmHg MV Area PHT 3.0 cm??? Mitral E Point Velocity 87.4 cm/s Mitral A Point Velocity 88.5 cm/s Mitral E to A Ratio 1.0 MV Deceleration Time 257.1 ms TR Peak Velocity 193.1 cm/s TR Peak Gradient 14.9 mmHg Right Ventricular Systolic Press 19.3 mmHg FINDINGS Left Ventricle Left ventricular ejection fraction is estimated at 55-60 %. Moderately increased septal wall thickness. Mildly increased left ventricular diastolic diameter. Normal left ventricular wall motion. Right Ventricle Normal right ventricular size and function. Right ventricular systolic pressure within normal limits. Right Atrium Mild right atrial dilatation. No right atrial thrombus or mass seen. Left Atrium Mildly increased left atrial diameter. Moderately increased left atrial volume. Mildly increased left atrial area. Mitral Valve Structurally normal mitral valve. No mitral stenosis or prolapse. Trace mitral regurgitation. Aortic Valve Trileaflet aortic valve. No aortic valve stenosis or regurgitation. Tricuspid Valve Structurally normal tricuspid valve. Trace to mild tricuspid regurgitation. Pulmonic Valve Pulmonic valve not well visualized. Pericardium No pericardial or pleural effusion. Aorta Moderate aortic dilatation at the level of the sinuses of valsalva 41 mm CONCLUSIONS Normal LV size and systolic function. Mild to moderate concentric LVH. Mild mitral and tricuspid regurgitation. No pericardial effusion. No pulmonary hyper tension Previewed by: Dr. Cecille Robles MD (Electronically Signed) Final Date: 13 March 2024 10:53
--- NOTE | 2024-03-13 11:37 | P.PN ---
Subjective HISTORY OF PRESENT ILLNESS: This is a 53-year-old male with a past medical history significant for hypertension, hyperlipidemia, and anxiety. Patient follows in the office with Dr. Ruiz. We have been asked to see the patient in consultation for syncope. Patient examined at the bedside in the emergency room. Patient states he was sitting on his deck yesterday having a barbecue for the holiday. He states that he began to feel nauseous so he thought he needed something to eat. He states that he stood up and took a few steps to go into the kitchen when he suddenly passed out. Patient spouse at the bedside who states he was out for erica roximately 10 to 12 minutes total. Afterwards the patient was confused for approximately 1 hour after the incident. He did not remember any of the events that had just happened. The patient's states that the patient's legs and arms were also very rigid at that time. She states that he was foaming at the mouth. She states that the patient did have an episode of syncope about 3 years ago however he did not have any confusion or foaming of the mouth at that time. The patient denies having any chest pain or pressure. He denies any shortness of breath. Denies any dizziness or lightheadedness. DIAGNOSTICS: - EKG reveals sinus mechanism with no signs of acute ischemia. - Chest xray negative for acute process - Laboratory data: WBC 9.4. Hemoglobin 14.3. Platelet count 183. D-dimer 0.73. Sodium 141. Potassium 4.2. BUN 9. Creatinine 0.82. Troponin negative x 3 - Current home cardiac medications include lisinopril 2.5 mg daily, aspirin 81 mg daily, Lipitor 20 mg daily - Patient underwent stress echocardiogram in December 2023 with no signs of acute ischemia 03/13/2024 Patient examined this morning the bedside. Patient denies chest pain or pressure. He denies shortness of breath. Vital signs are stable. Patient states he was evaluated by neurology who does not feel that the patient had a seizure. His EEG is pending. Cardiogram completed revealing normal LV size and systolic function. Mild to moderate concentric LVH. Mild mitral and tricuspid regurgitation. PHYSICAL EXAM: VITAL SIGNS: Reviewed. GENERAL: Well-developed in no acute distress. HEENT: Head is normocephalic. Pupils are equal, round. Sclerae anicteric. Mucous membranes of the mouth are moist. Neck supple. No JVD or thyromegaly LUNGS: Respirations even and unlabored. Lungs essentially clear to auscultation bilaterally. HEART: Regular rate and rhythm. S1 and S2 heard. ABDOMEN: Soft. Nondistended. Nontender. EXTREMITIES: Normal range of motion. No clubbing or cyanosis. Peripheral pulses intact. No lower extremity edema NEUROLOGIC: Awake and alert. Oriented x 3. ASSESSMENT: Syncope, suspect seizure Hypertension Hyperlipidemia Anxiety PLAN: Continue current cardiac medications Await further neurology evaluation No further inpatient recommendations from a cardiac standpoint. Will consider outpatient event monitor versus loop recorder Patient is stable for discharge home today from a cardiac standpoint We will sign off. Please reconsult if needed. Nurse practitioner note has been reviewed by physician. Signing provider agrees with the documented findings, assessment, and plan of care documented by DIAGRAM CLERK as a scribe. Objective - Vital Signs Vital signs: Vital Signs Temp 98.2 F 03/13/24 06:22 Pulse 63 03/13/24 08:10 Resp 18 03/13/24 08:10 BP 148/90 03/13/24 08:10 Pulse Ox 97 03/13/24 08:10 FiO2 Intake & Output 03/12/24 03/13/24 03/13/24 18:59 06:59 18:59 Intake Total 480 Balance 480 Weight 92.986 kg Intake: Oral 480 - Labs CBC & Chem 7: 03/13/24 06:16 03/13/24 06:16
--- NOTE | 2024-03-13 11:37 | P.CNNES ---
History of Present Illness Consult date: 03/12/24 Requesting physician: Bhargavi Sol Reason for Consult: syncope r/o seizure History of Present Illness: Patient is a 53-year-old male with longstanding history of syncopal spells, came to the hospital by ambulance yesterday at 7:23 PM for a prolonged syncopal spell. Patient's was also present and both of them provided with a history. Patient states that he was [facility] He remembers that he was well-hydrated, had lunch, did not have any dizziness, but around 5 PM he felt queasy in the stomach. He wanted to go to the kitchen, something to eat and had taken about only 4 steps, when he passed out, fell backwards, hitting neck on the dog dish. Patient's noticed that for the first minute he was not clearly breathing. He was out for about 10 to 12 minutes. Once he came to, he did not remember anything what has happened in the last couple months. However his memory came back. He did not bite his tongue, there was no loss of control of urine. Patient's states that his muscles were locked stiff as a board after he passed out. He denied any chest pain, any shortness of breath or dizziness prior to falling. He was not stressed, dehydrated. No diarrhea. He was sitting outside, and yesterday was good weather. His neck feels slightly sore from falling. As per EMS flowsheet, when they arrived, patient was laying in the bed, alert and orient x 4 with patent airway, normal respiration. Per family, patient had a syncopal episode with collapse at his residence. Family mentioned that he was "out of it" for several minutes after episode. Patient states he has had syncopal episodes in the past. Patient has history of atrial fibrillation, hypertension, anxiety and hyperlipidemia. There was no signs of trauma. Patient's vitals at the scene was blood pressure 170/93, pulse rate 82, respirations 16, saturation 100%. Vital signs on arrival blood pressure 162/86, temperature 97.8. Blood test shows normal CBC, PT PTT. Sodium 135 potassium 3.3, normal renal and hepatic panel, troponin negative. UA negative. EKG showed sinus rhythm. CT head sh owed no acute intracranial process. I personally reviewed CT head, agree with the findings. Chest x-ray showed no acute cardiopulmonary process. CTA of the chest revealed suboptimal study without CT evidence for acute pulmonary embolism. No suspicious acute pulmonary process. Patient states that he has lifelong history of syncopal episodes, likely vasovagal. Whenever he would see any blood, he could pass out. His main triggers include the stresses, dehydration, anxiety or site of blood can trigger a syncopal spell. 1 time he was having root canal when he passed out. Another time he was in [place] out in the beach when he was dehydrated and passed out. He was found to have low potassium and low magnesium. He is seeing neurologist Dr. Vogel long time ago and had EEG done, which was normal. He believes that he has about around 20 times passed out in his lifetime. However he has not passed out for last several years. Patient states that he was diagnosed with atrial fibrillation about 1 to 2 months ago. He is on aspirin, not on any anticoagulants. He is also being worked up for possible sleep apnea. Patient's home medication clued Paxil, aspirin 81 mg, lisinopril 2.5 mg, Xanax and Lipitor 20 mg. Patient denies any tobacco use or alcohol. Denies excessive caffeine. Review of Systems All pertinent positives and negatives mentioned in HPI. All other review of systems negative. Past Medical History Past Medical History: Atrial Fibrillation History of Any Multi-Drug Resistant Organisms: None Reported Past Surgical History: Tonsillectomy Past Anesthesia/Blood Transfusion Reactions: No Reported Reaction Past Psychological History: No Psychological Hx Reported Smoking Status: Light tobacco smoker Past Alcohol Use History: None Reported Past Drug Use History: None Reported Medications and Allergies Home Medications Medication Instructions Recorded Confirmed Type ALPRAZolam [Xanax] 0.5 mg PO DAILY PRN 02/08/24 03/12/24 History Aspirin [Adult Low Dose Aspirin EC] 81 mg PO DAILY 02/08/24 03/12/24 History Atorvastatin [Lipitor] 20 mg PO DAILY 02/08/24 03/12/24 History PARoxetine [Paxil] 20 mg PO DAILY 02/08/24 03/12/24 History lisinopriL [Zestril] 2.5 mg PO DAILY #30 tab 03/13/24 Rx Allergies Allergy/AdvReac Type Severity Reaction Status Date / Time No Known Allergies Allergy Verified 03/11/24 19:30 Physical Examination - Vital Signs Vital Signs: Vital Signs Temp Pulse Pulse Resp BP BP Pulse Ox 03/12/24 15:33 71 16 139/76 98 03/12/24 13:26 72 18 128/69 96 03/12/24 11:53 70 18 147/80 98 03/12/24 08:00 98.6 F 71 18 152/84 98 03/12/24 02:44 69 16 130/66 98 03/11/24 21:42 75 18 141/75 99 03/11/24 20:50 73 18 157/79 100 03/11/24 19:28 97.8 F 71 18 162/86 100 Intake and Output 03/12/24 03/12/24 03/12/24 06:59 14:59 22:59 Intake Total 480 Balance 480 Intake: Oral 480 Patient is a middle aged male, in no acute distress. Patient is alert awake oriented to time place and person. Speech and language functions are normal. Patient can name and repeat very well. No aphasia or dysarthria. Attention, concentration and fund of knowledge is adequate. On cranial nerve examination, pupils are equal, round and reacting to light, visual javier are full on confrontation, with no neglect on double simultaneous stimulation. Extraocular muscles are intact with no nystagmus. Face is symmetric, tongue protrudes to the midline. Palatal elevation and sensation normal, hearing and shoulder shrug normal, facial sensation normal. On muscle strength testing, there is no pronator drift and the strength is normal in arms and legs distally and proximally. Deep tendon reflexes are symmetric 1 at the biceps, 2 brachioradialis, 2 at the knees, 1 ankles and plantars downgoing bilaterally. Sensory to touch is equal with no neglect on double simultaneous stimulation. Cerebellar function showed no ataxia for [id number] testing. No dysdiadochokinesia. No ataxia for [id number] testing on either side. Tone and bulk of muscles normal. Gait deferred.. On general examination, there is no carotid bruit or murmur, S1-S2 audible. Chest is clear on consultation. Abdomen is soft nontender. No organomegaly, bowel sounds present. Peripheral pulses are present. No peripheral edema. Results - Laboratory Findings CBC and BMP: 03/13/24 06:16 03/13/24 06:16 Abnormal Lab Findings: Abnormal Labs 03/11/24 03/11/24 03/11/24 19:49 19:49 20:06 D-Dimer 0.73 H Sodium 135 L Potassium 3.3 L Chloride Glucose 120 H Total Bilirubin Urine Ketones 1+ H 03/12/24 07:28 D-Dimer Sodium Potassium Chloride 108 H Glucose Total Bilirubin 1.4 H Urine Ketones Assessment and Plan Assessment: * Syncope with collapse. Patient had somewhat prolonged period of amnesia after the fall, this could be related to possible concussion from the fall. Seizure is less likely, as he has tendency for syncope, throughout his lifetime. * History of recurrent vasovagal syncope in the past. * Hypertension * Hyperlipidemia * History of atrial fibrillation, currently in sinus mechanism. Plan: * Patient will undergo syncopal workup. * EEG rule out epileptiform activity * Carotid Doppler * 2D echo * Orthostatics. Patient may need tilt table test as well. * Patient has history of atrial fibrillation. Suggest placement of loop recorder for evaluation for any potential arrhythmia triggering syncopal spells. Cardiology is on board. * Continue aspirin 81 mg, Lipitor 20 mg. * Neurology will follow. Thank you for the consult.
[2024-03-13 12:32] VITALS: TEMP 99.1
--- NOTE | 2024-03-13 14:25 | EEG ---
ELECTROENCEPHALOGRAM REPORT PREAMBLE: This is a 53-year-old male with syncope versus seizure. CURRENT MEDICATIONS: 1. Aspirin. 2. Lipitor. 3. Motrin. 4. Zestril. EEG FINDINGS: This is a 21-channel digital EEG recorded with video component, utilizing 10/20 international system with referential and bipolar montages. Background consists of well developed, well regulated, low amplitude activity in 10 hertz alpha. Background is posterior dominant and seems to be slightly reactive to eye opening and closing. The photic driving response was not clearly seen. Drowsiness was seen with appearance of bilaterally symmetric theta frequency rhythm. Deeper stages of sleep were not seen. No focal or generalized epileptiform activity was seen. EKG channel showed no obvious arrhythmia. IMPRESSION: This is a normal awake and drowsy EEG. No focal, lateralized, or epileptiform activity was seen. MMJOAOL / JOSELITON: [id number] /
[2024-03-13 15:31] VITALS: BP 147/82; PULSE 69; RESP 18
--- NOTE | 2024-03-14 13:49 | P.DS ---
Providers Date of admission: 03/11/24 22:06 Attending physician: Eli Perez Consults: 03/11/24 22:04 Consult Physician Routine Consulting Provider: Sienna Jenkins Consult Reason/Comments: syncope r/o seizure Do you want consulting provider notified?: Yes, Notify in am Primary care physician: Rj [facility] Course: Final Diagnosis Syncope collapse and likely a postconcussion syndrome as he was confused after the fall and hit his head. Seizures less likely patient does have multiple episodes of syncope over his lifetime. History of vasovagal syncope in the past Hypertension Hyperlipidemia Anxiety Dismal atrial fibrillation currently in normal sinus rhythm on aspirin 81 mg daily. Discharge Disposition Patient stable for discharge home. Recommending to follow-up with his main director acute Dr. Gates in the office. No further inpatient recommendations from a cardiac standpoint. Will consider outpatient event monitor versus loop recorder cardiology. started on lisinopril 2.5 mg daily. Tilt table test as well outpatient. Hospital Course This is a 53-year-old male with medical history of atrial fibrillation currently on aspirin and statin only patient comes in for some call episode and states that he has had multiple episodes of syncope in the past. Patient was down on the floor for about 10 to 12 minutes as per family at bedside he did not have any seizure-like activity no urine or bowel incontinence and no tongue biting. He does not have any chest pain or dizziness or lightheadedness and did not have any prior to the episode. Patient was confused about an hour after he syncopized and this is likely due to a concussion. He did come in for cardiology and neurology evaluation. Patient denies any smoking alcohol or illicit drugs. He is currently not have any chest pain shortness of breath nausea vomiting or diarrhea and again noted headache dizziness weakness or numbness. Patient had a D-dimer that was mildly elevated at 0.[address] angio of the chest was negative for pulmonary embolism. He has unremarkable blood work. EKG shows normal sinus rhythm with no significant ST or T wave changes his chest x-ray was negative for any acute findings as well as a negative brain CT. An echocardiogram done that reveals an EF of 55 to 60% with mild MR and TR with no pericardial effusion and no pulmonary hypertension. Carotid Doppler reveals less than 50% stenosis of the bilateral carotid bifurcations this was discussed with the patient and his family at bedside and just recommending monitoring outpatient of this. EEG reveals no seizure-like activity. Did have a sodium level of 135 on admission as well as a potassium of 3.3 and these have since resolved and normalized. And his renal function is normal. Cleared to follow-up with his director acute and PCP in the office as well as neurology as needed. Repeat blood work in 2 to 3 days. He will continue all same home medications and also on lisinopril 2.5 mg daily. Please see medication reconciliation for a list of current medications. Thank you for allowing us to participate in the care of this patient. The impression and plan of care has been dictated by Jie Healy, Nurse Practitioner as directed. Dr. Hari MD I have performed a history and physical examination and medical decision making of this patient, discussed the same with the dictator, and agree with the dictators assessment and plan as written, documented as a scribe. Based on total visit time, I have performed more than 50% of this visit. Patient Condition at Discharge: Good Plan - Discharge Summary New Discharge Prescriptions: Continue PARoxetine [Paxil] 20 mg PO DAILY Aspirin [Adult Low Dose Aspirin EC] 81 mg PO DAILY lisinopriL [Zestril] 2.5 mg PO DAILY #30 tab ALPRAZolam [Xanax] 0.5 mg PO DAILY PRN PRN Reason: Anxiety Atorvastatin [Lipitor] 20 mg PO DAILY Discharge Medication List ALPRAZolam [Xanax] 0.5 mg PO DAILY PRN 02/08/24 [History] Aspirin [Adult Low Dose Aspirin EC] 81 mg PO DAILY 02/08/24 [History] Atorvastatin [Lipitor] 20 mg PO DAILY 02/08/24 [History] PARoxetine [Paxil] 20 mg PO DAILY 02/08/24 [History] lisinopriL [Zestril] 2.5 mg PO DAILY #30 tab 03/13/24 [Rx] Follow up Appointment(s)/Referral(s): Jose Ruiz MD [STAFF PHYSICIAN] - 1 Week Rj Hudson [Primary Care Provider] - 1-2 days Willi Vogel DO [STAFF PHYSICIAN] - As Needed (Neurology ) Ambulatory/Diagnostic Orders: Basic Metabolic Panel [LAB.AMB] Time Frame: 6 Days, Location: None Selected Discharge Disposition: HOME SELF-CARE
--- NOTE | 2024-03-15 22:33 | P.PN ---
Subjective Progress Note Date: 03/13/24 Patient was seen for a follow-up. Patient offers no new complaints. Patient is laying comfortably in the bed. Patient states that he has been going to the bathroom and feels fine. Objective - Vital Signs Vital signs: Vital Signs Temp 99.1 F 03/13/24 12:31 Pulse 55 L 03/13/24 12:31 Resp 16 03/13/24 12:31 BP 154/90 03/13/24 12:31 Pulse Ox 100 03/13/24 12:31 FiO2 Intake & Output 03/12/24 03/13/24 03/13/24 18:59 06:59 18:59 Intake Total 480 Balance 480 Weight 92.986 kg Intake: Oral 480 - Exam Normal. Mentation normal. Nonfocal exam. - Labs CBC & Chem 7: 03/13/24 06:16 03/13/24 06:16 Assessment and Plan Assessment: * Syncope with collapse. Patient had somewhat prolonged period of amnesia after the fall, this could be related to possible concussion from the fall. Seizure is less likely, as he has tendency for syncope, throughout his lifetime. * History of recurrent vasovagal syncope in the past. * Hypertension * Hyperlipidemia * History of atrial fibrillation, currently in sinus mechanism. Plan: * Patient will undergo syncopal workup. * EEG was performed, which was normal awake and drowsy. No focal, lateralized or epileptiform activity was seen. * Carotid Doppler revealed less than 50% stenosis of bilateral ICA. Antegrade flow in both vertebral arteries. * 2D echo revealed normal left ventricular size and systolic function. Mild to moderate concentric LVH. LVEF 55 to 60%. Mildly increased left atrial diameter. No valvular abnormalities. * Orthostatics were checked, which was normal. Supine blood pressure 147/82, sitting 150/85 and standing 141/86. Pulse rate were 69, 69, 64 respectively. Slightly abnormal response with absence of tachycardia on standing up. May consider tilt table test outpatient. * Patient has history of atrial fibrillation. Suggest placement of loop recorder for evaluation for any potential arrhythmia triggering syncopal spells. Cardiology is on board. Patient will discuss with [employer] outpatient. * Continue aspirin 81 mg, Lipitor 20 mg. * Neurologically clear for discharge.
== END 2024-03-13 15:55 | disposition home or self-care (01) ==
LOC: EC 19:23 → 3SCARD 22:06 → 5NMEDONC 03-13 08:40 → 6NMEDSUR 03-13 08:41
PROVIDERS: ADMIT Internal Medicine; ATTEND Internal Medicine
DX: R55 Syncope and collapse (principal); I48.91 Unspecified atrial fibrillation; E87.6 Hypokalemia; E83.42 Hypomagnesemia; E78.5 Hyperlipidemia, unspecified; I10 Essential (primary) hypertension; I08.1 Rheumatic disorders of both mitral and tricuspid valves; R41.0 Disorientation, unspecified; R41.3 Other amnesia; F41.9 Anxiety disorder, unspecified; R11.0 Nausea; R79.89 Other specified abnormal findings of blood chemistry; F17.200 Nicotine dependence, unspecified, uncomplicated; W19.XXXA Unspecified fall, initial encounter; Z79.82 Long term (current) use of aspirin; Z79.899 Other long term (current) drug therapy
CPT/HCPCS: 36415; 70450; 71046; 71275; 80048; 80053; 81003; 83735; 84484; 85025; 85379; 85610; 85730; 93005; 93306; 93880; 95816; 96361; 96374; 99285

== ENCOUNTER → 2024-04-11 | Outpatient (CLI) | payer BC ==
--- NOTE | 2024-04-18 12:25 | P.PCN ---
Description of Procedure: CLINICAL: A home sleep apnea test has been done for confirmation of possible obstructive sleep apnea-hypopnea syndrome. DESCRIPTION OF PROCEDURE: RESULTS: Recording time was 7 hours 32 minutes. Evaluation time was 7 hours 20 minutes. Evaluation time is sufficient for making conclusion about results of the test. Raw data of sleep recording has been reviewed and is adequate. Respiratory channel showed 3 apneas and 34 hypopneas. Apnea-hypopnea index was 5.0 per hour. Pulse rate in the range between minimum 43, maximum 137, average 55 by computer calculation. Lowest desaturation was 84%. IMPRESSION: 1. Mild Obstructive Sleep Apnea Hypopnea Syndrome. 2. History of episode of atrial fibrillation. 3. Hypertension. Please see other impressions from consultation. PLAN: 1. The patient will be started on auto-PAP treatment for correction of respiratory abnormallities during sleep. 2. I will see patient for follow up visit to discuss results of the test, evaluate clinical response on treatment with PAP therapy and make any necessary adjustments related to mask fitting, pressure, and humidification. 3. Watching weight. 4. Sleep hygiene with regular time in bed for at least 8 hours. 5. No driving if feeling any sleepiness. Thank you very much for allowing me to participate in the management of your patient. Sincerely, Rui Cabrera MD, PhD, FAASM Diplomat of [place] [employer] Sleep Medicine Board of [place] [employer] Dungeon Master of [facility] [place] cc: Rj Hudson MD
== END ==
LOC: 3 N SLEEP 16:29
PROVIDERS: ATTEND Internal Medicine

== ENCOUNTER → 2024-06-24 | Outpatient (CLI) | payer BC ==
[2024-06-24 10:31] VITALS: BP 147/82; PULSE 66; RESP 16; TEMP 98.1
--- NOTE | 2024-06-24 10:53 | P.PROGSL ---
Subjective DATE: 06/24/2024 FOLLOW UP VISIT. Patient with obstructive sleep apnea hypopnea syndrome return to sleep center for follow-up visit. Recently patient had sleep study which documented obstructive sleep apnea hypopnea syndrome. Patient was initiated on PAP therapy and today is first visit after treatment was started. Patient was able to use PAP equipment every night for the whole night. The patient does not have significant problems with the mask, PAP pressure and humidification. [place] sleepiness scale is 3, which is perfect. On CPAP patient feels that he sleeps better and he feels better during the day. I checked information from PAP unit. PAP unit pressure 5-14, average 9.2 cm H2O. Usage is 97% and 93% for more then 4 hours, average 7.75 hours per night. Leak is 4.8 l/m, which is in good range. Apnea Hypopnea Index is perfect 0.7. MEDICATIONS: Please see below During physical exam: GENERAL: A pleasant patient without any distress. VITAL SIGNS: Please see below, weight 229 pounds. HEENT: PERRLA, EOMI.low position of soft palate, Mallapati 4 . NECK: Supple. No JVD. LUNGS: Clear to percussion and to auscultation. Good air exchange. No wheezing or rhonchi. HEART: S1, S2 regular. ABDOMEN: Soft and nontender.[] EXTREMITIES: No clubbing or cyanosis. TALENT ACQUISITION ADMINISTRATOR: Awake, alert, and oriented x3. No focal deficit. Impressions: 1. Obstructive sleep apnea-hypopnea syndrome. Patient demonstrated great compliance with treatment, benefiting from treatment. 2. History of episodes of atrial fibrillation. 3. Hypertension. 4. History of anxiety. 5. Hyperlipidemia. 6. History of some difficulties to initiate sleep secondary to anxiety and psychophysiological. 7. Status post tonsillectomy. I explained to the patient how to regulate temperature in humidifier and in heated tube. Temperature in heated tube was decreased from 86 degree to 80 degree. Plan: 1. Continue using PAP equipment every night for the whole night. 2. To change air filter at least 1-2 times per month. 3. PAP unit should stay lower then position of the head. 4. Advised patient to remove all remaining water from humidifier canister daily and make it dry after each usage. Refill canister with fresh distilled water before each usage. 5. Sleep hygiene with regular time in bed for at least 8 hours. 6. Precautions related to driving. No driving if feel any sleepiness. 7. I will maintain prescription for PAP supplies including mask, tube, filters. 8. Follow up visit in 8 months or earlier if patient has any problems. 9. Watching weight. Thank you very much for allowing me to participate in the management of your patient. Rui Cabrera MD, PhD, FAASM. Diplomat of [place] [employer], Sleep Medicine Board by [place] [employer] Calendering Supervisor of [facility] [place] Objective - Vital Signs Vital Signs: Vital Signs Temp 98.1 F 06/24/24 10:29 Pulse 66 06/24/24 10:29 Resp 16 06/24/24 10:29 BP 147/82 06/24/24 10:29 Pulse Ox 100 06/24/24 10:29 FiO2 Home Medications: Home Medications Medication Instructions Recorded Confirmed Type ALPRAZolam [Xanax] 0.5 mg PO DAILY PRN 02/08/24 03/12/24 History Aspirin [Adult Low Dose Aspirin EC] 81 mg PO DAILY 02/08/24 03/12/24 History Atorvastatin [Lipitor] 20 mg PO DAILY 02/08/24 03/12/24 History PARoxetine [Paxil] 20 mg PO DAILY 02/08/24 03/12/24 History lisinopriL [Zestril] 2.5 mg PO DAILY #30 tab 03/13/24 Rx
== END ==
LOC: 3 N SLEEP 10:20
PROVIDERS: ATTEND Internal Medicine
DX: G47.33 Obstructive sleep apnea (adult) (pediatric) (principal); I10 Essential (primary) hypertension; I48.91 Unspecified atrial fibrillation; E78.5 Hyperlipidemia, unspecified; F41.8 Other specified anxiety disorders; Z90.89 Acquired absence of other organs; Z98.890 Other specified postprocedural states; Z99.89 Dependence on other enabling machines and devices; Z79.899 Other long term (current) drug therapy
CPT/HCPCS: 99212